=== PATIENT | female | born 1970 | race Caucasian/White ===

== ENCOUNTER → 2022-03-18 | Outpatient (CLI) | payer MEDICARE, MEDICAID | LOC: ORTHO 09:11 | PROVIDERS: ATTEND Orthopaedic Surgery | DX: S82.141A Displaced bicondylar fracture of right tibia, initial encounter for closed fracture (principal) | CPT/HCPCS: 99213 ==

== ENCOUNTER → 2022-04-01 | Outpatient (CLI) | payer MEDICARE, MEDICAID ==
--- NOTE | 2022-04-01 10:07 | Diagnostic Imaging Report ---
INDICATION: Right knee pain. COMPARISON: Outside films of 03/13/2022. FINDINGS: The fracture along the medial tibial plateau extending into the articulating surface is again noted. No significant offset is seen along the tibial articulating surface. There has been some bony remodeling. The femoral condyles appear normal. The patellofemoral joint is in good alignment. IMPRESSION: Healing nondisplaced medial tibial plateau fracture. Dictated by: Dictated on workstation # [id number]
== END ==
LOC: ORTHO 08:34
PROVIDERS: ATTEND Orthopaedic Surgery
DX: S82.141A Displaced bicondylar fracture of right tibia, initial encounter for closed fracture (principal); X58.XXXA Exposure to other specified factors, initial encounter
CPT/HCPCS: 73560; G0463; 99213

== ENCOUNTER → 2022-04-22 | Outpatient (CLI) | payer MEDICARE, MEDICAID ==
--- NOTE | 2022-04-22 08:48 | Diagnostic Imaging Report ---
INDICATION: Follow-up fracture. COMPARISON: 04/01/2022 FINDINGS: Multiple radiographic views of the right knee were obtained. Again identified is deformity of the proximal medial margins of the tibia consistent with nonacute fracture. Fracture line is much less conspicuous on today's study. Findings are suggestive of continued progressive partial interval healing. No new acute fracture or dislocation is seen. Joint spaces are maintained. There is no large joint effusion. No unexpected radiopaque foreign bodies are identified. IMPRESSION: 1. Continued progressive partial healing of previously described right medial tibial plateau fracture. Dictated by: Dictated on workstation # [id number]
== END ==
LOC: ORTHO 08:01
PROVIDERS: ATTEND Orthopaedic Surgery
DX: Z47.89 Encounter for other orthopedic aftercare (principal); S82.141D Displaced bicondylar fracture of right tibia, subsequent encounter for closed fracture with routine healing; X58.XXXD Exposure to other specified factors, subsequent encounter
CPT/HCPCS: 73562; G0463; 99213

== ENCOUNTER → 2022-05-22 | Outpatient (CLI) | payer MEDICARE, MEDICAID ==
--- NOTE | 2022-05-22 09:01 | Diagnostic Imaging Report ---
INDICATION: Right knee pain AP, oblique, and lateral views of the right knee are obtained. No fracture or acute bony abnormality is seen. There is mild medial joint space narrowing and osteophyte formation. IMPRESSION: Mild degenerative change in medial compartment. No acute abnormality of the right knee. Dictated by: Dictated on workstation # [id number]
== END ==
LOC: ORTHO 08:09
PROVIDERS: ATTEND Orthopaedic Surgery
DX: Z47.89 Encounter for other orthopedic aftercare (principal); M17.11 Unilateral primary osteoarthritis, right knee
CPT/HCPCS: 73562; G0463; 99213